=== PATIENT | female | born 1945 | race American Indian/Alaskan Native ===

== ENCOUNTER 2018-12-02 19:45 | Inpatient (IN) | payer MEDICARE ==
--- NOTE | 2018-12-02 20:07 | Consultation ---
History of Present Illness History of present illness: [facility] Consult Services Impression: Patient with rather vague complaints of spilling food and not feeling like herself. Food spilling could have been from weakness, but she did not feel weak. Could also be ataxia/incoordination. Multiple possible localization for a stroke with rapidly resolving deficits or TIA. Could also be a number of other medical issues. Not a tpa candidate due to: resolved, no focal deficits, Xarelto use in last 48h Not an CHAU candidate due to: resolved, no focal deficits, presentation not suggestive of LVO Differential Diagnosis: 1. Cardioembolic stroke 2. Small vessel disease/lacune 3. Thromboembolic, [id number] mechanism 4. Hypercoagulable state-related infarct 5. Transient ischemic attack 6. Thrombotic mechanism, large artery disease Comments: Door time: 1947 [facility] contacted: 1948 [facility] at bedside: 1950 NIHSS assessment time: 1958 (pt in CT on log in) Recommendations: MRI brain wo ASA Permissive HTN Statin CTA head/neck TTE inpatient neurology consultation Inpatient stroke evaluation as per Neurology/ Internal Medicine Discussed with ED MD --------- CC: stroke alert History of Present Illness Patient is a72 year old woman with a history of afib on Xarelto, DM, HTN who presented in transfer for stroke evaluation. She states she stopped taking Xarelto today for a planned dental procedure (last dose yesterday). Last normal at 1850. She was at the dinner table feeding her grandchild and kept dropping food on her shirt. She states "I didn't feel like myself" but is unable to elaborate on this. She could not identify why she was spilling food - she denies focal weakness, sensory loss, vision change, speech/language change, HINSON, CP. She went to an outlying hospital but their CT was down, so she was transferred here. Transferring EMS thought the patient had slurred speech, so stroke alert called - patient did not recognize this, though. She feels baseli ne now. Diagnostic: CT head wo - nothing acute Exam: NIHSS score: 0 Medical Decision Making: - Extensive number of diagnosis or management options are considered above. - Extensive amount of complex data reviewed. - High risk of complication and/or morbidity or mortality are associated with differential diagnostic considerations above. - There may be Uncertain outcome and increased probability of prolonged functional impairment or high probability of severe prolonged functional impairment associated with some of these differential diagnosis. Medical Data Reviewed: 1.Data reviewed include clinical labs, radiology, Medical Tests; 2.Tests results discussed w/performing or interpreting physician; 3.Obtaining/reviewing old medical records; 4.Obtaining case history from another source; 5.Independent review of image, tracing or specimen. Patient was informed the Neurology Consult would happen via TeleHealth consult by way of interactive audio and video telecommunications and consented to receiving care in this manner. Medications and Allergies Allergies Allergy/AdvReac Type Severity Reaction Status Date / Time Penicillins Allergy Unknown Verified 12/02/18 19:47 - Level of Consciousness 1a. Level of Consciousness: alert/keenly responsive - LOC Questions 1b. LOC Questions: answers both correctly - LOC Command 1c. LOC Commands: performs tasks correctly - Best Gaze 2. Best Gaze: normal - Visual 3. Visual: no visual loss - Facial Palsy 4. Facial Palsy: normal symmetrical movement - Motor Arm 5a. Motor Arm Left: no drift 5b. Motor Arm Right: no drift - Motor Leg 6a. Motor Leg Left: no drift 6b. Motor Leg Right: no drift - Limb Ataxia 7. Limb Ataxia: absent - Sensory 8. Sensory: normal - Best Language 9. Best Language: no aphasia - Dysarthria 10. Dysarthria: normal - Extinction and Inattention 11. Extinction/Inattention: no abnormality - Scoring Total Score: 0 Stroke Severity: No Stroke Symptoms
[2018-12-02 20:15] LABS: Basophils % (Auto) 0.6 % (0.0-1.8); Eosinophils # (Auto) 0.1 K/mm3 (0.0-0.4); Eosinophils % (Auto) 0.9 % (0.0-4.3); Hematocrit 45.6 % (30.3-42.9); Hemoglobin 15.6 gm/dl (10.1-14.3); Lymphocytes # (Auto) 2.1 K/mm3 (1.2-5.4); Lymphocytes % (Auto) 26.1 % (13.4-35.0); Mean Corpuscular HGB Conc 34 % (30-34); Mean Corpuscular Volume 98 fl (79-97); Monocytes # (Auto) 1.1 K/mm3 (0.0-0.8); Monocytes % (Auto) 13.7 % (0.0-7.3); Platelet Count 193 K/mm3 (140-440); Red Blood Count 4.64 M/mm3 (3.65-5.03); Red Cell Distribution Width 14.4 % (13.2-15.2)
--- NOTE | 2018-12-02 20:26 | Emergency Department Report ---
HPI - General Chief Complaint: Neuro Symptoms/Deficit Time Seen by Provider: 12/02/18 20:08 - HPI HPI: Room 22 The patient 72-year-old female presenting with chief complaint of "I don't feel like myself." The patient reportedly was eating when she states she did not feel like herself. The patient denies any specific complaints this repeats that she did not feel like her normal self. Patient states she noted she had wishes some food on her clothing and subsequently went to the ED. Patient denied having pain of any type dizziness nausea/vomiting or shortness of breath. Patient denies history of fever. The patient states she had a headache earlier today but not currently. Location: [See above] Duration: [See above] Quality: [See above] Severity: [See above] Modifying factors: [see above] Context: [see above] Mode of transportation: [not driving] ED Past Medical Hx - Past Medical History Previous Medical History?: Yes Hx Hypertension: Yes - Surgical History Past Surgical History?: No - Family History Family history: no significant - Social History Smoking Status: Current Every Day Smoker (1/2 pack per day) Substance Use Type: None (denies illicit drug use), Alcohol (nightly) - Medications Home Medications: Home Medications Medication Instructions Recorded Confirmed Last Taken Type Carvedilol [Coreg] 25 mg PO BID 12/02/18 12/02/18 12/02/18 History Chlorthalidone [Thalitone] 25 mg PO QDAY 12/02/18 12/02/18 12/02/18 History Levothyroxine [Synthroid] 125 mcg PO QAM 12/02/18 12/02/18 12/02/18 History Potassium Chloride [K-Dur] 10 meq PO QDAY 12/02/18 12/02/18 12/02/18 History Rivaroxaban [Xarelto] 20 mg PO QDAY 12/02/18 12/02/18 12/02/18 History metFORMIN XR [Glucophage XR] 500 mg PO QDAY 12/02/18 12/02/18 12/02/18 History ED Review of Systems ROS: Stated complaint: STROKE Other details as noted in HPI Constitutional: denies: fever Eyes: denies: eye pain ENT: denies: throat pain Respiratory: denies: shortness of breath Cardiovascular: denies: chest pain Endocrine: no symptoms reported Gastrointestinal: denies: abdominal pain, nausea, vomiting Genitourinary: denies: dysuria Musculoskeletal: denies: back pain Neurological: headache Physical Exam - Physical Exam Physical Exam: GENERAL: The patient is well-developed well-nourished female lying on stretcher not appearing to be in acute distress. [] HEENT: Normocephalic. Atraumatic. Extraocular motions are intact. Patient has moist mucous membranes. NECK: Supple. Trachea midline CHEST/LUNGS: Clear to auscultation. There is no respiratory distress noted. HEART/CARDIOVASCULAR: Regular. There is no tachycardia. There is no gallop rub or murmur. ABDOMEN: Abdomen is soft, nontender. Patient has normal bowel sounds. There is no abdominal distention. SKIN: There is no rash. There is no edema. There is no diaphoresis. NEURO: The patient is awake, alert, and oriented. The patient is cooperative. The patient has no focal neurologic deficits. The patient has normal speech. Cranial nerves II through XII grossly intact, no drift. Patient able to hold either leg at 30 angle for 5 count MUSCULOSKELETAL: There is no evidence of acute injury. NIHSS= 0 LOC a. Alert= 0 Not alert but arousable to minor stimuli=1 Not alert requires repeated or strong stimuli to move= 2 Responds only reflex motor or unresponsive=3 b. asks month and age answers both correctly= 0 answers one correctly= 1 answers neither correctly= 2 Best Gaze normal= 0 abnormal in one or both but forced deviation or total paresis absent= 1 forced deviation or total gaze paresis= 2 Visual no visual loss= 0 partial hemianopia= 1 complete hemianopia= 2 bilateral hemianopia= 3 Facial Palsy normal= 0 minor paralysis= 1 partial paralysis= 2 complete paralysis= 3 Motor Arm no drift= 0 drift before 10 secs but doesnt hit bed= 1 some effort against gravity= 2 no effort against gravity= 3 no movement= 4 Motor leg no drift= 0 drift before 5 secs but doesnt hit bed= 1 drifts to bed before 5 secs= 2 no effort against gravity= 3 no movement= 4 Limb ataxia absent=0 present in one limb= 1 present in two limbs= 2 Sensory normal= 0 mild sensory loss= 1 severe (unaware of being touched)= 2 Best language mild/some loss of fluency= 1 severe= 2 mute= 3 Dysarthria normal= 0 slurs some words= 1 severe/unintelligible= 2 Extinction and Inattention no abnormality= 0 visual, tactile, auditory or personal inattention= 1 profound (doesnt recognize own hand or orients to only one side= 2 ED Medical Decision Making - Lab Data Result diagrams: 12/02/18 19:59 - EKG Data -: EKG Interpreted by Me EKG shows normal: sinus rhythm Rate: normal - EKG Data When compared to previous EKG there are: previous EKG unavailable Interpretation: other (no ischemic changes seen) - Radiology Data Radiology results: report reviewed (CT head), image reviewed (CT head) [facility] [address] [place] [address] Cat Scan Report Signed Patient: VIRA MASTERS MR#: [id number] [birth year] : 1945 Acct:[id number] Age/Sex: 72 / F ADM Date: 12/02/18 Loc: ED Attending Dr: Ordering Physician: ELZA KATE MD Date of Service: 12/02/18 Procedure(s): CT head/brain wo con Accession Number(s): [id number] cc: ELZA KATE MD CT HEAD WITHOUT CONTRAST INDICATION / CLINICAL INFORMATION: . Left-sided weakness. Right-sided facial drooping. "Code stroke" TECHNIQUE: All CT scans at this location are performed using CT dose reduction for ALARA by means of automated exposure control. COMPARISON: None available. FINDINGS: HEMORRHAGE: No evidence of intracranial hemorrhage or extra-axial fluid collection. EXTRA-AXIAL SPACES: Cortical sulci, sylvian fissures and basilar cisterns have an unremarkable appearance. VENTRICULAR SYSTEM: The ventricular system is of normal size and configuration. CEREBRAL PARENCHYMA: No areas of abnormal brain parenchymal attenuation are identified. There is no indication of recent infarction. MIDLINE SHIFT OR HERNIATION: There is no mass effect. CEREBELLUM / BRAINSTEM: Brainstem has an unremarkable appearance. Moderate ce rebellar atrophy is noted. INTRACRANIAL VESSELS:No abnormalities are identified on this noncontrast head CT. ORBITS: visualized portions of the orbits have an unremarkable appearance. SOFT TISSUES of HEAD: No significant abnormality. CALVARIUM: Evaluation of bone windows reveals no abnormalities. PARANASAL SINUSES / MASTOID AIR CELLS: Paranasal sinuses are free from inflammatory mucosal disease. Mastoid air cells are normally pneumatized. IMPRESSION: 1. Moderate cerebellar atrophy 2. No acute intracranial abnormality. Code stroke patient I called the emergency department physician with a report of this study at about 2020 hours Eastern standard time. Signer Name: Mayur Wolff MD Signed: 12/02/2018 8:23 PM Workstation Name: [id number] Transcribed By: Dictated By: Mayur Wolff MD Electronically Authenticated By: Mayur Wolff MD Signed Date/Time: 12/02/182022 DD/ 15 TD/TT: - Differential Diagnosis TIA, ICH, dysrhythmia, Critical care attestation.: If time is entered above; I have spent that time in minutes in the direct care of this critically ill patient, excluding procedure time. ED Disposition Clinical Impression: Acute alteration in mental status Disposition: DC-09 OP ADMIT IP TO THIS HOSP Is pt being admited?: Yes Condition: Stable Referrals: SANDI HENRIQUEZ MD [Primary Care Provider] - 3-5 Days Time of Disposition: 21:12 (hospitalist paged )
--- NOTE | 2018-12-02 20:27 | Cat Scan Report ---
CT HEAD WITHOUT CONTRAST INDICATION / CLINICAL INFORMATION: . Left-sided weakness. Right-sided facial drooping. "Code stroke" TECHNIQUE: All CT scans at this location are performed using CT dose reduction for ALARA by means of automated e xposure control. COMPARISON: None available. FINDINGS: HEMORRHAGE: No evidence of intracranial hemorrhage or extra-axial fluid collection. EXTRA-AXIAL SPACES: Cortical sulci, sylvian fissures and basilar cisterns have an unremarkable appear ance. VENTRICULAR SYSTEM: The ventricular system is of normal size and configuration. CEREBRAL PARENCHYMA: No areas of abnormal brain parenchymal attenuation are identified. There is no i ndication of recent infarction. MIDLINE SHIFT OR HERNIATION: There is no mass effect. CEREBELLUM / BRAINSTEM: Brainstem has an unremarkable appearance. Moderate cerebellar atrophy is note d. INTRACRANIAL VESSELS:No abnormalities are identified on this noncontrast head CT. ORBITS: visualized portions of the orbits have an unremarkable appearance. SOFT TISSUES of HEAD: No significant abnormality. CALVARIUM: Evaluation of bone windows reveals no abnormalities. PARANASAL SINUSES / MASTOID AIR CELLS: Paranasal sinuses are free from inflammatory mucosal disease. Mastoid air cells are normally pneumatized. IMPRESSION: 1. Moderate cerebellar atrophy 2. No acute intracranial abnormality. Code stroke patient I called the emergency department physician with a report of this study at about 2020 hours Eastern s tandard time. Signer Name: Mayur Wolff MD Signed: 12/02/2018 8:23 PM Workstation Name: [email or web address]
[2018-12-02 20:30] LABS: INR 1.05 (0.87-1.13)
[2018-12-02 20:34] LABS: BUN/Creatinine Ratio 16; Blood Urea Nitrogen 11 mg/dL (7-17); Calcium 9.5 mg/dL (8.4-10.2); Hemolysis Index 10
--- NOTE | 2018-12-02 22:21 | History and Physical Report ---
History of Present Illness Date of examination: 12/02/18 History of present illness: 72-year-old woman with a history of hypertension,hypothyroidism, A. fib on on xarelto comes to the emergency room with complaints of not feeling like herself. Son-in- law stated that she had slurred speech and a droopy face, this occurred around 7 PM. Patient stated that her grand daughter noticed she spilled food on her clothes, they were at a restaurant eating. She tried to pick food up of her clothes but instead she spread it all over her clothes. She last occurs her also yesterday in anticipation for a cleaning at the dentist, was told to hold the xarelto for 3 days. Symptoms resolved in the emergency room Review of systems Constitutional: no weight loss, chills, fever Ears, eyes, nose, mouth and throat: no nasal congestion, no nasal discharge, no sinus pressure, no vision change, no red eye. Neck: No neck pain or rigidity. Cardiovascular: no palpitations, chest pain Respiratory: no cough, shortness of breath Gastrointestinal: no hematochezia, abdominal pain Genitourinary : no frequency , no hematuria Musculoskeletal: no joint swelling or muscle ache Integumentary: no rash, no pruritis Neurological: no parathesias, no focal weakness Endocrine: no cold or heat intolerance, no polyuria or polydipsia Hematologic/Lymphatic: no easy bruising, no easy bleeding, no gland swelling Allergic/Immunologic: no urticaria, no angioedema. PAST MEDICAL HISTORY: hypertension, A. fib, hypothyroidism PAST SURGICAL HISTORY: Tonsillectomy, hysterectomy SOCIAL HISTORY: 1 alcoholic drink/night, no drugs, 3 packs a week FAMILY HISTORY: Hypertension Medications and Allergies Allergies Allergy/AdvReac Type Severity Reaction Status Date / Time codeine Allergy Unknown Verified 12/02/18 20:07 Penicillins Allergy Unknown Verified 12/02/18 19:47 strawberry Allergy Unknown Verified 12/02/18 20:07 Home Medications Medication Instructions Recorded Confirmed Last Taken Type Amlodipine Besylate [Norvasc] 5 mg PO QDAY 12/02/18 12/02/18 1 Day Ago History ~12/01/18 Carvedilol [Coreg] 25 mg PO BID 12/02/18 12/02/18 12/02/18 History Chlorthalidone [Thalitone] 25 mg PO QDAY 12/02/18 12/02/18 12/02/18 History Levothyroxine [Synthroid] 125 mcg PO QAM 12/02/18 12/02/18 12/02/18 History Potassium Chloride [K-Dur] 10 meq PO QDAY 12/02/18 12/02/18 12/02/18 History Rivaroxaban [Xarelto] 20 mg PO QDAY 12/02/18 12/02/18 12/02/18 History metFORMIN XR [Glucophage XR] 500 mg PO QDAY 12/02/18 12/02/18 12/02/18 History Exam - Physical Exam Narrative exam: General Apperance: The patient lying in bed, breathing comfortable HEENT: Normocephalic, atraumatic. Pupils equally round and reactive to light, EOMI, no sclericterus or JVD or thyromegaly or nodule. , no carotid bruit, mucous membranes moist, no exudate or erythema Heart: S1-S2, regular is rhythm Lungs: Clear to auscultation bilaterally, breathing comfortable Abdomen: Positive bowel sounds, soft, nontender, nondistended, no organomegaly Extremities: No edema cyanosis clubbing Skin: no rash, nodule, warm and dry Neuro: cranial nerves 2-12 intact, speech is fluent, motor/sensory intact - Constitutional Vitals: Temp Pulse Resp BP Pulse Ox 58 L 22 143/59 98 12/02/18 20:30 12/02/18 21:15 12/02/18 21:15 12/02/18 21:15 Results - Labs CBC & Chem 7: 12/02/18 19:59 12/02/18 19:59 Labs: Abnormal lab results 12/02/18 12/02/18 12/02/18 Range/Units 19:59 19:59 19:59 Hgb 15.6 H (10.1-14.3) gm/dl Hct 45.6 H (30.3-42.9) % MCV 98 H (79-97) fl MCH 34 H (28-32) pg [place] % (Auto) 13.7 H (0.0-7.3) % [place] # 1.1 H (0.0-0.8) K/mm3 APTT 20.0 L (24.2-36.6) Sec. Thrombin Time (15.1-19.6) Sec. Potassium 3.2 L (3.6-5.0) mmol/L Glucose 118 H (65-100) mg/dL 12/02/18 Range/Units 19:59 Hgb (10.1-14.3) gm/dl Hct (30.3-42.9) % MCV (79-97) fl MCH (28-32) pg [place] % (Auto) (0.0-7.3) % [place] # (0.0-0.8) K/mm3 APTT (24.2-36.6) Sec. Thrombin Time 14.0 L (15.1-19.6) Sec. Potassium (3.6-5.0) mmol/L Glucose (65-100) mg/dL - Imaging and Cardiology CT Scan - head: report reviewed Assessment and Plan Assessment TIA A. fib Hypokalemia Hypothyroidism Diabetes Plan Admit to medicine Obtain MRI of the head and neck, echo Do neuro checks, swallow screen Start statin, restart xarelto Discuss case with telemetry neurologists , recommend continue Xarelto for 3 months without interruption [employer] Operator neurology, PT, OT IV hydralazine as needed for blood pressure control Check fingersticks, initiate insulin sliding scale Replete potassium DVT prophylaxis
[2018-12-02] MEDS ORDERED: REGLAN PO PRN (23:03)
[2018-12-02] MEDS ORDERED: MILK OF MAGNESIA PO PRN (23:03)
[2018-12-02] MEDS ORDERED: SODIUM CHLORIDE FLUSH SYRINGE 10 ML IV PRN (23:03)
[2018-12-02] MEDS ORDERED: ZOFRAN IV PRN (23:03)
[2018-12-02] MEDS ORDERED: DULCOLAX PR PRN (23:03)
[2018-12-02] MEDS ORDERED: XARELTO PO ONE (23:46)
[2018-12-03] MEDS ORDERED: D50W (25GM) Syringe IV PRN (00:02)
[2018-12-03] MEDS ORDERED: K-DUR PO ONE ×2 (00:04→20:25)
[2018-12-03] MEDS: SYNTHROID PO SCH (05:31)
[2018-12-03] MEDS: TYLENOL PO PRN ×2 (05:31→16:52)
[2018-12-03 06:23] LABS: Chol/HDL Ratio 2.12 %
[2018-12-03] MEDS: HumaLOG SUB-Q SCH ×4 (07:57→22:12)
[2018-12-03] MEDS ORDERED: LOVENOX SUB-Q SCH ×2 (10:00)
--- NOTE | 2018-12-03 10:12 | Progress Note ---
Subjective Date of service: 12/03/18 Interval history: went over the MRI and there is clear cut stroke of the right posterior MCA artery right parietam lobe the MRA showing loss of some distal branches of the right MCVA the proximal MCA and ICA are patient advise medical therapy see nothing that would indicate martha for endovascular catheeter therapy full note dictated Objective - Vital Sign Vital Signs - 12hr 12/02/18 12/02/18 12/02/18 22:15 22:30 22:45 Temperature Pulse Rate 81 81 81 Respiratory 16 18 16 Rate Blood Pressure 130/60 125/52 132/52 O2 Sat by Pulse 95 91 94 Oximetry 12/02/18 12/02/18 12/02/18 23:00 23:03 23:21 Temperature 97.9 F Pulse Rate 80 83 74 Respiratory 17 22 19 Rate Blood Pressure 137/60 141/69 O2 Sat by Pulse 96 96 Oximetry 12/03/18 12/03/18 03:56 07:58 Temperature 98.8 F 98.6 F Pulse Rate 82 Respiratory 18 18 Rate Blood Pressure 135/63 112/42 O2 Sat by Pulse 96 Oximetry - Laboratory Findings CBC and BMP: 12/02/18 19:59 12/02/18 19:59 Abnormal Lab Findings: Abnormal Labs 12/02/18 12/02/18 12/02/18 19:59 19:59 19:59 Hgb 15.6 H Hct 45.6 H MCV 98 H MCH 34 H [place] % (Auto) 13.7 H [place] # 1.1 H APTT 20.0 L Thrombin Time Potassium 3.2 L Glucose 118 H HDL Cholesterol 12/02/18 12/03/18 19:59 04:40 Hgb Hct MCV MCH [place] % (Auto) [place] # APTT Thrombin Time 14.0 L Potassium Glucose HDL Cholesterol 79 H
--- NOTE | 2018-12-03 10:34 | Magnetic Resonance Report ---
MRI BRAIN WITHOUT CONTRAST INDICATION / CLINICAL INFORMATION: stroke. Slurred speech and facial drooping. TECHNIQUE: Multiplanar, multisequence MR images of the brain were obtained. COMPARISON: Head CT 12/02/2018 FINDINGS: BRAIN / INTRACRANIAL CONTENTS: This abnormal study demonstrates a small area of restricted diffusion in the perirolandic region elisha g the lateral convexity of the right cerebral hemisphere near the junction of the frontal and parieta l lobes. Signal changes are seen in a similar distribution on FLAIR and T2-weighted scans. These find ings represent the presence of a subacute right MCA infarction. There is no indication of hemorrhagic transformation. Ventricles and cortical sulci are normal in size and configuration given the patient's age of 72 year s. There is remarkably little in the way of microvascular ischemic change in this 72-year-old individ ual.. There is no mass effect. No evidence of intracranial hemorrhage or extra-axial fluid collection is seen The brainstem and cerebellum have an unremarkable appearance. CRANIOCERVICAL JUNCTION: No abnormalities are identified at the craniocervical junction. VASCULAR FLOW-VOIDS: Normal flow-voids are present within the major intracranial vessels. ORBITS: The orbits have an unremarkable appearance. SINUSES / MASTOIDS: Bilateral inflammatory mucosal thickening is observed at the base of both maxilla ry sinuses. Mild inflammatory changes are seen within several ethmoid air cells. Paranasal sinuses ot herwise appear clear. IMPRESSION: 1. This abnormal study demonstrates evidence of a small right MCA infarction in the perirolandic angy on as described above. There is no indication of hemorrhagic transformation. Signer Name: Mayur Wolff MD Signed: 12/03/2018 10:30 AM Workstation Name: [id number]
--- NOTE | 2018-12-03 10:36 | Magnetic Resonance Report ---
MRA HEAD WITHOUT CONTRAST HISTORY: Slurred speech and facial drooping. COMPARISON: none TECHNIQUE: Routine MRA of the head performed. 3-D/MIP reformats postprocessed. CONTRAST: none FINDINGS: MRA HEAD: OVERVIEW: There is no evidence of intracranial stenosis or large vessel occlusion. There is no eviden ce of aneurysm or other vascular malformation. Intracranial vertebral arteries: No significant abnormality. Basilar artery: No significant abnormality. Posterior cerebral arteries: No significant abnormality. Intracranial internal carotid arteries: No significant abnormality. Anterior cerebral arteries: No significant abnormality. Middle cerebral arteries: No significant abnormality. Additional findings: None. IMPRESSION: 1. No abnormality on MRA head. Signer Name: Mayur Wolff MD Signed: 12/03/2018 10:32 AM Workstation Name: [id number]
--- NOTE | 2018-12-03 11:20 | Progress Note ---
Assessment and Plan Assessment and plan: Acute ischemic stroke on right, confirmed by MRI On Xarelto for afib Add Aspirin 81mg A. fib Continue Xarelto Hypokalemia Replace, recheck Hypothyroidism Continue Levothyroxine Diabetes mellitus type 2 Fingerstick glucose qac and hs History Interval history: slurred speech resolved facial weakness Hospitalist Physical - Physical exam Narrative exam: Gen: Not in acute distress, lying in bed, HEENT: Normocephalic, atraumatic Neck: supple, no JVD Heart: S1 and S2 reg, no murmurs, rubs or gallop Lungs: Clear, no crackles, no wheeze Abd: soft, non tender, non distended, normal BS Ext: No edema, no clubbing, no cyanosis, Neuro: Awake,alert, oriented, normal speech, moves all exttremities - Constitutional Vitals: Temp Pulse Resp BP Pulse Ox 98.6 F 82 18 112/42 96 12/03/18 07:58 12/03/18 03:56 12/03/18 07:58 12/03/18 07:58 12/03/18 03:56 Results - Labs CBC & Chem 7: 12/02/18 19:59 12/02/18 19:59 Labs: Laboratory Last Values WBC 7.9 K/mm3 (4.5-11.0) 12/02/18 19:59 RBC 4.64 M/mm3 (3.65-5.03) 12/02/18 19:59 Hgb 15.6 gm/dl (10.1-14.3) H 12/02/18 19:59 Hct 45.6 % (30.3-42.9) H 12/02/18 19:59 MCV 98 fl (79-97) H 12/02/18 19:59 MCH 34 pg (28-32) H 12/02/18 19:59 MCHC 34 % (30-34) 12/02/18 19:59 RDW 14.4 % (13.2-15.2) 12/02/18 19:59 Plt Count 193 K/mm3 (140-440) 12/02/18 19:59 Lymph % (Auto) 26.1 % (13.4-35.0) 12/02/18 19:59 [place] % (Auto) 13.7 % (0.0-7.3) H 12/02/18 19:59 Eos % (Auto) 0.9 % (0.0-4.3) 12/02/18 19:59 Baso % (Auto) 0.6 % (0.0-1.8) 12/02/18 19:59 Lymph # 2.1 K/mm3 (1.2-5.4) 12/02/18 19:59 [place] # 1.1 K/mm3 (0.0-0.8) H 12/02/18 19:59 Eos # 0.1 K/mm3 (0.0-0.4) 12/02/18 19:59 Baso # 0.0 K/mm3 (0.0-0.1) 12/02/18 19:59 Seg Neutrophils % 58.7 % (40.0-70.0) 12/02/18 19:59 Seg Neutrophils # 4.6 K/mm3 (1.8-7.7) 12/02/18 19:59 PT 13.4 Sec. (12.2-14.9) 12/02/18 19:59 INR 1.05 (0.87-1.13) 12/02/18 19:59 APTT 20.0 Sec. (24.2-36.6) L 12/02/18 19:59 14.0 Sec. (15.1-19.6) L 12/02/18 19:59 Sodium 140 mmol/L (137-145) 12/02/18 19:59 Potassium 3.2 mmol/L (3.6-5.0) L 12/02/18 19:59 Chloride 98.1 mmol/L (98-107) 12/02/18 19:59 Carbon Dioxide 30 mmol/L (22-30) 12/02/18 19:59 15 mmol/L 12/02/18 19:59 BUN 11 mg/dL (7-17) 12/02/18 19:59 0.7 mg/dL (0.7-1.2) 12/02/18 19:59 Estimated GFR > 60 ml/min 12/02/18 19:59 16 % 12/02/18 19:59 Glucose 118 mg/dL (65-100) H 12/02/18 19:59 POC Glucose 88 (70-105) 12/03/18 08:34 Calcium 9.5 mg/dL (8.4-10.2) 12/02/18 19:59 < 0.010 ng/mL (0.00-0.029) 12/02/18 19:59 Triglycerides 59 mg/dL (2-149) 12/03/18 04:40 Cholesterol 168 mg/dL (50-199) 12/03/18 04:40 83 mg/dL (50-130) 12/03/18 04:40 79 mg/dL (40-59) H 12/03/18 04:40 2.12 % 12/03/18 04:40 Active Medications - Current Medications Current Medications: Generic Name Dose Route Start Last Admin Trade Name Freq PRN Reason Stop Dose Admin Acetaminophen 650 mg 12/02/18 23:03 12/03/18 05:31 Tylenol PO 650 mg Q4H PRN Administration Pain, Mild (1-3) Atorvastatin Calcium 40 mg 12/03/18 22:00 Lipitor PO QHS [facility] Bisacodyl 10 mg 12/02/18 23:03 Dulcolax DE QDAY PRN Constipation Dextrose 50 ml 12/03/18 00:02 D50w (25gm) Syringe IV PRN PRN Hypoglycemia Insulin Human Lispro 0 unit 12/03/18 07:30 Humalog SUB-Q ACHS [facility] Protocol Levothyroxine Sodium 125 mcg 12/03/18 06:00 12/03/18 05:31 Synthroid PO 125 mcg QAM@0600 [facility] Administration Magnesium Hydroxide 30 ml 12/02/18 23:03 Milk Of Magnesia PO Q4H PRN Constipation Metformin HCl 500 mg 12/03/18 08:00 Glucophage Xr PO QDAY@0800 [facility] Metoclopramide HCl 10 mg 12/02/18 23:03 Reglan PO Q6H PRN Nausea And Vomiting Ondansetron HCl 4 mg 12/02/18 23:03 Zofran IV Q8H PRN Nausea And Vomiting Rivaroxaban 20 mg 12/03/18 17:00 Xarelto PO QDAY@1700 [facility] Protocol Sodium Chloride 10 ml 12/02/18 23:03 Sodium Chloride Flush Syringe 10 Ml IV PRN PRN LINE FLUSH
[2018-12-03] MEDS: GLUCOPHAGE XR PO SCH (11:59)
[2018-12-03] MEDS: HALFPRIN EC PO SCH (16:51)
[2018-12-03] MEDS: XARELTO PO SCH (17:09)
--- NOTE | 2018-12-04 04:19 | Consultation ---
HISTORY OF PRESENT ILLNESS: This is a 72-year-old female who presents to Emergency Room , saying she was not feeling well. She was apparently eating, did not feel like herself. Denied any other specific complaints, presented to the Emergency Room with being a fairly disheveled and having not eating her food correctly. She does not complain of any pain or dizziness. She denied a fever. She states she had a headache, but this was not a previously present. She has a prior medical history of congestive heart failure, hypothyroidism, and diabetes. She is on carvedilol, ____, Synthroid, potassium chloride, Xarelto, and metformin. The patient has EKG. The patient was on sinus rhythm. The patient had a hematocrit of 45. CT scan of the head was done and this was unremarkable. The patient is subsequently was evaluated, was not noted to have any focal paresis or weakness. She was noted to have any hemisensory loss, language problem, dysarthria or any other weakness. The patient's neurological examination was normal at that point. PRIOR MEDICAL HISTORY: Significant for smoking. She does not drink. The patient by my examination has a very mild extinction and weakness of the left arm. The patient has a gaze preference to the right. She does not have any gross ataxia. Cranial nerves 2-12 are intact. Motor and sensory examination otherwise unremarkable. The patient does have evidence of visual field cut on the left homonymous hemianopsia. There is drift to the left upper extremity. Gait is normal. IMPRESSION: Suspect acute stroke, posterior right middle cerebral artery given the patient's symptoms. PLAN: To further address with MRA/MRI. Obtain carotid artery ultrasound. There is not good documentation as to why she was on Xarelto that is interesting to review that. I did review over the tele-neurology consult. She has been transferred here from another hospital. The patient was not a TPA candidate because she had been taking Xarelto. I did review the neurology consult was essentially unremarkable with a stroke scale of 0. JOB# [id number] CHUN/NTS
[2018-12-04 05:13] LABS: BUN/Creatinine Ratio 16; Blood Urea Nitrogen 11 mg/dL (7-17); Calcium 9.9 mg/dL (8.4-10.2); Hemolysis Index 3
[2018-12-04] MEDS: SYNTHROID PO SCH (06:04)
[2018-12-04] MEDS: HumaLOG SUB-Q SCH ×4 (07:30→22:42)
--- NOTE | 2018-12-04 08:05 | Progress Note ---
Subjective Date of service: 12/04/18 Interval history: formal report on the MRA did not comment on distal branch MCA occlusive disease... labs are basically OK except for elevated glucose await ECHO STILL TRYING TO GET QUESTION ON XARELTO ? SHE STATES IT WAS FROM ATRIAL FIBRILLATION AND SHE HAD STOPPED XARELTO DUE TO DENTAL APPOINTM,ENT AND SEVERE BLEEDING SHE STATES SHE HAS NO HAD SYMPTOMS SUCH THIS PREVIOUSLY Impression Stroke from atrial fib asnd missing xarelto... dental bleeding advise check ECHO... LOCATION OF STROKE LIKELY FROM A FIB explained to patient he basis of the stroke and plan ECHO Objective - Vital Sign Vital Signs - 12hr 12/03/18 12/04/18 12/04/18 22:00 00:22 04:55 Temperature 98.2 F 98.7 F Pulse Rate 69 69 69 Pulse Rate [ 70 Apical] Pulse Rate [ 70 Right Radial] Respiratory 18 20 20 Rate Blood Pressure 145/74 141/65 O2 Sat by Pulse 99 95 Oximetry - Laboratory Findings CBC and BMP: 12/02/18 19:59 12/04/18 03:37 Abnormal Lab Findings: Abnormal Labs 12/02/18 12/02/18 12/02/18 19:59 19:59 19:59 Hgb 15.6 H Hct 45.6 H MCV 98 H MCH 34 H [place] % (Auto) 13.7 H [place] # 1.1 H APTT 20.0 L Thrombin Time Potassium 3.2 L Carbon Dioxide Glucose 118 H POC Glucose HDL Cholesterol 12/02/18 12/03/18 12/03/18 19:59 04:40 21:16 Hgb Hct MCV MCH [place] % (Auto) [place] # APTT Thrombin Time 14.0 L Potassium Carbon Dioxide Glucose POC Glucose 183 H HDL Cholesterol 79 H 12/04/18 03:37 Hgb Hct MCV MCH [place] % (Auto) [place] # APTT Thrombin Time Potassium 3.4 L Carbon Dioxide 32 H Glucose POC Glucose HDL Cholesterol
[2018-12-04] MEDS: GLUCOPHAGE XR PO SCH (08:58)
[2018-12-04] MEDS: K-DUR PO SCH ×2 (08:58→15:44)
[2018-12-04] MEDS: HALFPRIN EC PO SCH (09:00)
--- NOTE | 2018-12-04 16:02 | Vascular Lab Report ---
"DUPLEX DOPPLER ULTRASOUND CAROTID, BILATERAL INDICATION / CLINICAL INFORMATION: Stroke. Altered mental status. COMPARISON: None available. FINDINGS: RIGHT CAROTID PLAQUE ESTIMATE: < 50% CCA velocity: 77.1 cm/sec. ICA peak systolic velocity: 68.9 cm/sec. ICA/CCA PSV Ratio: 0.97. Right Vertebral Artery: Antegrade flow. LEFT CAROTID [place]QUE ESTIMATE: < 50% CCA velocity: 77.8 cm/sec. ICA peak systolic velocity: 71.7 cm/sec. ICA/CCA PSV Ratio: 0.92. Left Vertebral Artery: Antegrade flow. IMPRESSION: 1. Right Internal Carotid Artery: Less than 50% diameter stenosis. 2. Left Internal Carotid Artery: Less than 50% diameter stenosis. Velocity criteria are extrapolated from diameter data as defined by the Society of Radiologists in [facility] Consensus Conference, Radiology 2003; 229;340-346. Degree of || ICA PSV || Plaque || ICA/CCA Stenosis (%) || (cm/sec) || estimate (%) || PSV Ratio Normal..............||....<125............||....None..........||.....<2.0 <50....................||....<125...........||.......<50..........||.....<2.0 50-69.................||..125-230.......||.......>50..........||...2.0-4.0 >70 but <100....||..>230..............||........>50........||.....>4.0 Near occlusion..||.High/low/none||....visible........||..variable Total occlusion..||..None.............||...no lumen.....||.........N/A Signer Name: Denis Aponte MD Signed: 12/04/2018 3:58 PM Workstation Name: [id number]"
--- NOTE | 2018-12-04 17:35 | Progress Note ---
Assessment and Plan Assessment and plan: Acute ischemic stroke on right, confirmed by MRI On Xarelto for afib Patient was not taking xarelto recently Echo done, report pending A. fib Continue Xarelto Hypokalemia Replace, recheck Hypothyroidism Continue Levothyroxine Diabetes mellitus type 2 Fingerstick glucose qac and hs History Interval history: slurred speech resolved facial weakness Hospitalist Physical - Physical exam Narrative exam: Gen: Not in acute distress, lying in bed, HEENT: Normocephalic, atraumatic Neck: supple, no JVD Heart: S1 and S2 reg, no murmurs, rubs or gallop Lungs: Clear, no crackles, no wheeze Abd: soft, non tender, non distended, normal BS Ext: No edema, no clubbing, no cyanosis, Neuro: Awake,alert, oriented, normal speech, moves all extremities - Constitutional Vitals: Temp Pulse Resp BP Pulse Ox 98.1 F 65 18 136/60 100 12/04/18 12:38 12/04/18 16:10 12/04/18 12:38 12/04/18 16:10 12/04/18 16:10 Results - Labs CBC & Chem 7: 12/02/18 19:59 12/04/18 03:37 Labs: Laboratory Last Values WBC 7.9 K/mm3 (4.5-11.0) 12/02/18 19:59 RBC 4.64 M/mm3 (3.65-5.03) 12/02/18 19:59 Hgb 15.6 gm/dl (10.1-14.3) H 12/02/18 19:59 Hct 45.6 % (30.3-42.9) H 12/02/18 19:59 MCV 98 fl (79-97) H 12/02/18 19:59 MCH 34 pg (28-32) H 12/02/18 19:59 MCHC 34 % (30-34) 12/02/18 19:59 RDW 14.4 % (13.2-15.2) 12/02/18 19:59 Plt Count 193 K/mm3 (140-440) 12/02/18 19:59 Lymph % (Auto) 26.1 % (13.4-35.0) 12/02/18 19:59 [place] % (Auto) 13.7 % (0.0-7.3) H 12/02/18 19:59 Eos % (Auto) 0.9 % (0.0-4.3) 12/02/18 19:59 Baso % (Auto) 0.6 % (0.0-1.8) 12/02/18 19:59 Lymph # 2.1 K/mm3 (1.2-5.4) 12/02/18 19:59 [place] # 1.1 K/mm3 (0.0-0.8) H 12/02/18 19:59 Eos # 0.1 K/mm3 (0.0-0.4) 12/02/18 19:59 Baso # 0.0 K/mm3 (0.0-0.1) 12/02/18 19:59 Seg Neutrophils % 58.7 % (40.0-70.0) 12/02/18 19:59 Seg Neutrophils # 4.6 K/mm3 (1.8-7.7) 12/02/18 19:59 PT 13.4 Sec. (12.2-14.9) 12/02/18 19:59 INR 1.05 (0.87-1.13) 12/02/18 19:59 APTT 20.0 Sec. (24.2-36.6) L 12/02/18 19:59 14.0 Sec. (15.1-19.6) L 12/02/18 19:59 Sodium 145 mmol/L (137-145) 12/04/18 03:37 Potassium 3.4 mmol/L (3.6-5.0) L 12/04/18 03:37 Chloride 99.5 mmol/L (98-107) 12/04/18 03:37 Carbon Dioxide 32 mmol/L (22-30) H 12/04/18 03:37 17 mmol/L 12/04/18 03:37 BUN 11 mg/dL (7-17) 12/04/18 03:37 0.7 mg/dL (0.7-1.2) 12/04/18 03:37 Estimated GFR > 60 ml/min 12/04/18 03:37 16 % 12/04/18 03:37 Glucose 87 mg/dL (65-100) 12/04/18 03:37 POC Glucose 76 (70-105) 12/04/18 16:18 Calcium 9.9 mg/dL (8.4-10.2) 12/04/18 03:37 < 0.010 ng/mL (0.00-0.029) 12/02/18 19:59 Triglycerides 59 mg/dL (2-149) 12/03/18 04:40 Cholesterol 168 mg/dL (50-199) 12/03/18 04:40 83 mg/dL (50-130) 12/03/18 04:40 79 mg/dL (40-59) H 12/03/18 04:40 2.12 % 12/03/18 04:40 Active Medications - Current Medications Current Medications: Generic Name Dose Route Start Last Admin Trade Name Freq PRN Reason Stop Dose Admin Acetaminophen 650 mg 12/02/18 23:03 12/03/18 16:52 Tylenol PO 650 mg Q4H PRN Administration Pain, Mild (1-3) Atorvastatin Calcium 40 mg 12/03/18 22:00 12/03/18 22:11 Lipitor PO 40 mg QHS [facility] Administration Bisacodyl 10 mg 12/02/18 23:03 Dulcolax [place] QDAY PRN Constipation Dextrose 50 ml 12/03/18 00:02 D50w (25gm) Syringe IV PRN PRN Hypoglycemia Insulin Human Lispro 0 unit 12/03/18 07:30 12/04/18 11:30 Humalog SUB-Q Not Given ACHS [facility] Protocol Levothyroxine Sodium 125 mcg 12/03/18 06:00 12/04/18 06:04 Synthroid PO 125 mcg QAM@0600 [facility] Administration Magnesium Hydroxide 30 ml 12/02/18 23:03 Milk Of Magnesia PO Q4H PRN Constipation Metformin HCl 500 mg 12/03/18 08:00 12/04/18 08:58 Glucophage Xr PO 500 mg QDAY@0800 [facility] Administration Metoclopramide HCl 10 mg 12/02/18 23:03 Reglan PO Q6H PRN Nausea And Vomiting Ondansetron HCl 4 mg 12/02/18 23:03 Zofran IV Q8H PRN Nausea And Vomiting Rivaroxaban 20 mg 12/03/18 17:00 12/03/18 17:09 Xarelto PO 20 mg QDAY@1700 [facility] Administration Protocol Sodium Chloride 10 ml 12/02/18 23:03 Sodium Chloride Flush Syringe 10 Ml IV PRN PRN LINE FLUSH
[2018-12-04] MEDS: XARELTO PO SCH (17:46)
[2018-12-05 05:14] LABS: BUN/Creatinine Ratio 18; Blood Urea Nitrogen 11 mg/dL (7-17); Calcium 9.6 mg/dL (8.4-10.2); Hemolysis Index 27
[2018-12-05] MEDS: SYNTHROID PO SCH (06:48)
[2018-12-05 09:03] VITALS: BP 120/53
[2018-12-05] MEDS: HumaLOG SUB-Q SCH (09:04)
[2018-12-05] MEDS: GLUCOPHAGE XR PO SCH (09:05)
--- NOTE | 2018-12-05 10:51 | Discharge Summary ---
Providers - Providers Date of Admission: 12/02/18 22:20 Date of discharge: 12/05/18 Attending physician: KIRSTY LLOYD 12/02/18 Consult to Physician [CONS] Routine Comment: Consulting Provider: EDNA DEVLNI Physician Instructions: Reason For Exam: tia 12/02/18 23:03 Occupational Therapy Evaluate and Treat [CONS] Routine Comment: Reason For Exam: Neuro deficits Physical Therapy Evaluation and Treat [CONS] Routine Comment: Reason For Exam: Neuro deficits Primary care physician: [facility] MD ELISSA Hospitalization Condition: Fair Hospital course: Patient is 72-year-old woman with a history of hypertension,hypothyroidism, A. fib on on xarelto presented to the emergency room with complaints of not feeling like herself, slurred speech, droopy face. Patient was on Xarelto and stopped it for 3 days for dental procedure. She was seen and examined in Emergency Department. CT head was unremarkable. She was admitted to rule out stroke. MRI confirmed acute ischemic stroke on right . She was evaluated by Neurologist and also Physical therapist. Carotid doppler did not show significant stenosis, Patient was subsequently discharge home on 12/05/18 on Lipitor and Xarelto resumed. Total time spent on discharge, 32 mins Disposition: DC-01 TO HOME OR SELFCARE - Discharge Diagnoses (1) Acute ischemic stroke Status: Acute (2) HTN (hypertension) Status: Acute (3) Hypothyroidism Status: Acute (4) Hyperlipidemia Status: Acute Core Measure Documentation - Palliative Care Palliative Care/ Comfort Measures: Not Applicable - Core Measures Any of the following diagnoses?: stroke - Stroke Discharge Requirements Statin for LDL = or >70 mg/dl on DC: Yes Anticoag for atrial fib/atrial flutter: Yes Antithrombotic for ischemic stroke: No Reason for no antithrombotic on DC: Medical Contraindication (Patient on xarelto) Exam - Constitutional Vitals: Temp Pulse Resp BP Pulse Ox 98.1 F 56 L 18 120/53 95 12/05/18 08:54 12/05/18 08:54 12/05/18 08:54 12/05/18 08:54 12/05/18 08:54 Plan Activity: advance as tolerated Diet: low fat, low cholesterol, low salt Additional Instructions: 1.Follow up with PCP in 1 week. 2.Follow up with Cardiology in 1 week Follow up with: SANDI HENRIQUEZ MD [Primary Care Provider] - 3-5 Days Prescriptions: AtorvaSTATin [Lipitor] 40 mg PO QHS #30 tablet
== END 2018-12-05 11:37 | disposition home or self-care (01) | DRG 66 ==
LOC: ED 19:45 → 4A 22:20
PROVIDERS: ADMIT Internal Medicine; ATTEND Internal Medicine
DX: I63.9 Cerebral infarction, unspecified (principal); I48.91 Unspecified atrial fibrillation; E87.6 Hypokalemia; E03.9 Hypothyroidism, unspecified; E11.9 Type 2 diabetes mellitus without complications; E78.5 Hyperlipidemia, unspecified; R47.81 Slurred speech; F17.200 Nicotine dependence, unspecified, uncomplicated; I11.0 Hypertensive heart disease with heart failure; I50.9 Heart failure, unspecified; Z90.710 Acquired absence of both cervix and uterus; Z72.89 Other problems related to lifestyle; Z82.49 Family history of ischemic heart disease and other diseases of the circulatory system; Z88.0 Allergy status to penicillin; Z88.5 Allergy status to narcotic agent; Z79.899 Other long term (current) drug therapy
CPT/HCPCS: 36415; 70450; 70544; 70551; 80048; 80061; 82962; 84484; 85025; 85610; 85670; 85730; 93005; 93010; 93306; 93880; 99406; G0378; A9270-GY; J1815